=== PATIENT | female | born 1970 | race Caucasian/White ===

== ENCOUNTER 2016-11-11 20:14 | Emergency (ER) | payer MEDICAID, OTHER ==
[~2016-11-11] VITALS: Ht 167.6 cm; Wt 63.5 kg
[~2016-11-11 20:14] MED LIST: DEXTROSE (50%) 50ML SYRG IV ONE; EPINEPHrine HCL 1 MG/10 ML SYRG IV ONE; PREN-96 PO
[2016-11-11 20:43] VITALS: BP 0/0
== END 2016-11-11 23:56 | disposition expired ==
LOC: EDUNIT# 20:17 → EDBD 20:17 → ER 20:17
DX: I46.9 Cardiac arrest, cause unspecified (principal); R41.82 Altered mental status, unspecified; V43.52XA Car driver injured in collision with other type car in traffic accident, initial encounter; Y93.89 Activity, other specified; Y99.8 Other external cause status; Y92.89 Other specified places as the place of occurrence of the external cause
CPT/HCPCS: 92950; 99285; J0171; J7042; 31500